=== PATIENT | male | born 1960 | race Two or more races ===

== ENCOUNTER 2019-07-22 10:58 | Emergency (ER) | payer MEDICAID ==
[~2019-07-22] VITALS: Ht 162.6 cm; Wt 56.0 kg
[2019-07-22 12:14] VITALS: BP 134/76
== END 2019-07-22 14:38 | disposition home or self-care (01) ==
LOC: ER 11:05
DX: B34.9 Viral infection, unspecified (principal); J45.909 Unspecified asthma, uncomplicated
CPT/HCPCS: 71046; 99284